=== PATIENT | male | born 1955 | race Caucasian/White ===

== ENCOUNTER 2016-09-15 07:46 | Outpatient (CLI) | payer OTHER ==
--- NOTE | 2016-09-15 08:21 | DIAGNOSTIC IMAGING REPORT ---
PROCEDURE: CT LOW-DOSE LUNG CA SCREENING CLINICAL INDICATION: LUNG CA SCREENING TECHNIQUE: Low-dose helical CT images of the lungs without contrast were obtained and reconstructed at 2.5 mm intervals. MIP reformations in coronal and sagittal planes were created. Radiation dose 1.39 mGy. COMPARISON: Oldest available comparison: Chest x-ray 04/02/2014 FINDINGS: NODULES: There are no pulmonary nodules. OTHER LUNG FINDINGS: AIRWAY: Branches normally without narrowing or endobronchial nodule. There is bronchial wall thickening. PLEURA: No effusions, thickening, or pneumothorax. AORTA AND GREAT VESSELS: Normal caliber, minor atherosclerotic calcification. PULMONARY ARTERIES: Normal. . HEART AND PERICARDIUM: Normal size without effusion, thickening. LYMPH NODES: No enlarged nodes visible. THORACIC SPINE: No suspicious lesion. Moderate degenerative changes. CHEST WALL: Normal. VISUALIZED UPPER ABDOMEN: Normal. IMPRESSION: 1. No evidence of pulmonary nodules 2. Bronchitis 3. Category 1: Negative. Continue annual screening with LDCT in [address] scans at this facility use dose modulation, iterative reconstruction, and/or weight-based dosing when appropriate to reduce radiation dose to as low as reasonably achievable.
[2016-11-13] MEDS ORDERED: LISINOPRIL10 MG PO (16:55)
[2016-11-13] MEDS ORDERED: ATENOLOL50 MG PO (16:55)
== END 2016-09-15 23:00 ==
LOC: CT SRH 07:46
DX: J40 Bronchitis, not specified as acute or chronic (principal); Z87.891 Personal history of nicotine dependence

== ENCOUNTER 2016-12-31 10:00 | Inpatient (IN) | payer OTHER ==
[~2016-12-31] VITALS: Ht 170.2 cm; Wt 72.4 kg
[~2016-12-31 10:00] MED LIST: ATENOLOL50 MG PO; LISINOPRIL10 MG PO
[2017-01-18] VITALS (9 sets, daily range): BP systolic 85–109; BP diastolic 51–77
--- NOTE | 2017-01-18 11:05 | Operative Report ---
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 endotracheal Indications: A 61-year-old male with history of diverticulitis. Recently underwent colonoscopy and polypectomy at 18 cm. Pathology shows the polyp to be atypical and highly suspicious for adenocarcinoma. FINDINGS: A thickened sigmoid consistent with chronic diverticulitis Surgical Technique: Patient brought to the operating room. Patient was placed in the dorsal supine position. Patient underwent general endotracheal anesthesia by the anesthesiology department. After proper anesthesia had taken effect patient was placed in low lithotomy. A Cannon catheter placed. Patient's abdomen was prepped and draped in a sterile fashion. An infraumbilical incision through the skin and subcutaneous tissue. A varies needle was inserted through this site. After ascertaining its appropriate position with suction irrigation, a pneumoperitoneum was obtained using CO2 insufflation to approximate 14-15 mmHg pressure. Once this pressure was reached, the varies needle was removed and replaced with a 10 mm trocar. The trocar removed leaving the sleeve behind which a laparoscopic video camera was introduced into the abdominal cavity. Under direct visualization a 12 mm trocar was placed in the right lower quadrant , another 5 mm trocar was placed in the right mid abdomen, another 5mm trocar was placed in the left midabdomen. Each introducer abdominal cavity under direct visualization. The trocar were removed leaving the sleeve behind through which laparoscopic instrumentation was introduced in the abdominal cavity. The aforementioned findings noted. The sigmoid was mobilized from lateral to medial by incising the white line of T[place]t using the ThunderBeat this being carried down into the pelvis as well. Dissection continued below the peritoneal reflection. Once the sigmoid and the rectum were mobilized, the junction of the descending colon and sigmoid were isolated by incising the mesocolon. Once the mesocolic window was performed and Endo NITA stapler was introduced into the abdominal cavity and the colon transected at that site. The mesocolon was taken down posteriorly on the colon using the ThunderBeat, continuing down posteriorly onto the rectum. A portion of the mesorectum was taken down as well as the rectal peritoneum reflection. The Endo NITA stapler was then passed back into the abdomen and placed across the rectum. The rectum was then divided using the Endo NITA. A small infraumbilical incision made and carried out to skin and subcutaneous tissue. The peritoneal cavity was entered and the pneumoperitoneum released. The rectosigmoid specimen was retrieved from the abdominal cavity and sent to pathology. The descending colon was brought up through our incision and a pursestring device was placed proximal to our staple line. Using 0 Max[place], a pursestring was created, the staple line was transected. The colotomy was then dilated to 31 mm. The endo-EEA stapler anvil was placed within the colotomy and the pursestring suture tied. The descending colon and placed anvil was allowed to return to its normal anatomical position within the abdomen The infra umbilical midline incision was closed using #1 PDS. Subcutaneous tissue was irrigated and a moist sponge was placed within the wound. The pneumoperitoneum was reestablished. The laparoscope was placed within the abdominal cavity once again. It was at this point that Dr. Canchola went below and dilated the rectal stump to 31 mm. The endo-EEA stapler was then passed and the spike extruded. The descending colon/anvil were manipulated and the anvil and spike were connected, the EEA stapler closed and fired. The endo-EEA stapler was then removed and inspected there were 2 concentric formed rings of colon and rectum identified and intact. The rectum was then insufflated with air from below while the staple line was submerged beneath a pool of normal saline. No leak identified. Hemostasis was assured within the abdominal cavity, the pneumoperitoneum was released. All trochars removed and the abdominal cavity. The infraumbilical midline incision was closed using running 4-0 Polysorb suture. All trocar sites were approximated using interrupted 4-0 Polysorb subcuticular suture as well. Sterile pressure occlusive dressings were placed over each wound. The patient was extubated. Transferred to the recovery room. There were no intraoperative or anesthetic complications. CONDITION: Stable to postoperative anesthesia recovery room COMPLICATIONS: None ESTIMATED BLOOD LOSS: Minimal FLUIDS:: 1500 cc lactated Ringer's DRAINS/PACKING: None SPECIMEN: Rectosigmoid
[2017-01-19] VITALS (7 sets, daily range): BP systolic 93–159; BP diastolic 56–103
--- NOTE | 2017-01-19 06:45 | Progress Note ---
Subjective General 61-year-old male postop day 1 status post laparoscopically assisted low anterior resection. Ambulatory. No shortness of breath or chest pain. Minimal abdominal discomfort. Passing flatus and bloody bowel movement last night. Physical Exam Vital Signs / I&Os Vital Signs Date Time Temp Pulse Resp B/P Pulse O2 O2 Flow FiO2 Ox Delivery Rate 01/19 0200 98.4 69 16 97/56 96 Room Air 0.0 I&O 01/18 0800 01/18 1600 01/19 0000 Intake Total 1000 1898 0 Output Total 1115 0 Balance 1000 783 0 General Appearance Alert, Oriented X3, Cooperative, No acute distress Lungs Clear to auscultation Cardiovascular Regular rate and rhythm Abdomen Normal bowel sounds, dressings dry and intact Extremities No cyanosis, No edema Neurological No lateralizing signs Psych/Mental Status Mood normal Assessment and Plan Problem List 1. STATUS POST LAPAROSCOPIC-ASSISTED LOW ANTERIOR RESECTION Plan Stable postop day #1. Continue present management. We'll start on clear liquid diet.
[2017-01-20] VITALS (7 sets, daily range): BP systolic 138–161; BP diastolic 71–105
--- NOTE | 2017-01-20 06:42 | Progress Note ---
Subjective General 61-year-old male postop day 2 status post laparoscopically assisted low anterior resection. Patient's blood pressure was uppermost night. Restarted on his lisinopril and atenolol. Patient states that he's passing flatus and having some bloody bowel movements. He is ambulatory. He does not complain of any shortness of breath or chest pain. Last night he had 200 cc of emesis. He complains of abdominal soreness/pain in the periumbilical region. Physical Exam Vital Signs / I&Os Vital Signs Date Time Temp Pulse Resp B/P Pulse O2 O2 Flow FiO2 Ox Delivery Rate 01/20 0232 76 01/20 0212 97.9 78 18 153/105 92 Room Air 01/19 2251 98.2 73 18 159/103 92 Room Air 01/19 1906 88 01/19 1837 88 147/100 01/19 1810 99.0 88 18 140/98 91 Room Air 01/19 1440 97.9 76 18 119/79 93 Room Air 01/19 1103 98.2 65 18 96/59 92 Room Air 0.0 01/19 0958 70 01/19 0657 98.1 70 18 93/56 96 Room Air 0.0 I&O 01/19 0800 01/19 1600 01/20 0000 Intake Total 1641 960 120 Output Total 550 550 Balance 1641 410 -430 General Appearance Oriented X3, Cooperative, No acute distress Lungs Clear to auscultation Cardiovascular Regular rate and rhythm Abdomen distended. Tympanitic. Normoactive bowel sounds. Incisions clean. Dressings dry and intact Extremities No clubbing, No edema Skin warm and dry Neurological No lateralizing signs Psych/Mental Status Mood normal LAB Results WBC this morning is 16.8. Up from 13.3 yesterday Laboratory Tests 01/19 01/20 1015 0510 Chemistry Plasma Sodium (136 - 145 mmol/L) 135 Plasma Potassium (3.5 - 5.1 mmol/L) 4.5 Plasma Chloride (98 - 107 mmol/L) 99 CO2 (Enzymatic) (21 - 32 mmol/L) 28 BUN (7 - 18 mg/dL) 18 Creatinine (0.6 - 1.3 mg/dL) 1.0 Est GFR ( Amer) (mL/min) >60 Est GFR (Non-Af Amer) (mL/min) >60 Glucose (70 - 110 mg/dL) 131 Plasma Calcium (8.5 - 10.1 mg/dL) 8.0 Hematology WBC (4.5 - 11.5 K/uL) 13.3 16.8 RBC (4.50 - 5.90 M/uL) 4.11 4.25 Hgb (13.5 - 17.5 gm/dL) 12.3 12.9 Hct (41.0 - 53.0 %) 36.3 37.3 MCV (80 - 100 fL) 88 88 MCH (26 - 34 pg) 30 30 RDW (11.6 - 14.8 %) 14.0 13.3 Neut % (Auto) (50 - 75 %) 79.4 87.3 Lymph % (Auto) (25 - 40 %) 9.1 4.4 [place] % (Auto) (3 - 14 %) 10.4 7.9 Eos % (Auto) (0 - 4 %) 0.5 0 Baso % (Auto) (0 - 2 %) 0.6 0.4 Plt Count, EDTA (150 - 400 K/uL) 278 282 PUBS MCHC (31 - 37 g/dL) 34 35 Assessment and Plan Problem List 1. STATUS POST LAPAROSCOPIC-ASSISTED LOW ANTERIOR RESECTION Plan Postop day 2 status post laparoscopic-assisted low anterior resection. He developed ileus. Developed elevated white count. Cannot rule out anastomotic leak at this point. Start by getting a upright abdominal x-ray on the patient. Will make patient n.p.o. except for meds
--- NOTE | 2017-01-20 07:21 | DIAGNOSTIC IMAGING REPORT ---
PROCEDURE: XR ABDOMEN 1 VIEW UPRIGHT INDICATION: Abdominal pain. TECHNIQUE: AP upright view. COMPARISON: None. FINDINGS: There is mild gaseous distention of small bowel loops with multiple air-fluid levels. No evidence of free air. Moderate degenerative changes of the lumbar spine. IMPRESSION: 1. Mild gaseous distention of small bowel loops with air-fluid levels. Findings are compatible with ileus or obstruction (versus gastroenteritis).
[2017-01-21 02:02] VITALS: BP 121/67
[2017-01-21 06:45] VITALS: BP 149/82
--- NOTE | 2017-01-21 06:49 | Progress Note ---
Subjective General 61-year-old male who is postop day #3 laparoscopic-assisted low anterior resection. More comfortable today than yesterday. He continues to pass flatus and having brown bowel movements. Ambulatory. Still complains of some pain at the periumbilical region incision site. Physical Exam Vital Signs / I&Os Vital Signs Date Time Temp Pulse Resp B/P Pulse O2 O2 Flow FiO2 Ox Delivery Rate 01/21 0202 98.2 58 15 121/67 92 Room Air 01/20 2226 97.9 63 16 144/71 93 Room Air 01/20 2027 67 01/20 1810 98.4 67 18 138/91 95 Room Air 01/20 1420 98.2 67 18 140/85 93 Room Air 01/20 1241 144/88 01/20 1112 98.1 79 20 161/95 96 Room Air 0.0 01/20 1010 92 01/20 0824 70 01/20 0657 97.5 69 18 139/92 92 Room Air 0.0 I&O 01/20 0800 01/20 1600 01/21 0000 Intake Total 1268 1521 Output Total 500 850 300 Balance 768 -850 1221 General Appearance Alert, Oriented X3, Cooperative, No acute distress Lungs Clear to auscultation Cardiovascular Regular rate and rhythm Abdomen Normal bowel sounds, less abdominal distention. Ecchymosis around the infraumbilical surgical site. No evidence of cellulitis. Next tympany to percussion. Extremities No clubbing, No edema Skin warm and dry Neurological No lateralizing signs Psych/Mental Status Mood normal LAB Results WBC down this morning 10.6. Laboratory Tests 01/21 0520 Hematology WBC (4.5 - 11.5 K/uL) 10.6 RBC (4.50 - 5.90 M/uL) 3.72 Hgb (13.5 - 17.5 gm/dL) 11.2 Hct (41.0 - 53.0 %) 33.0 MCV (80 - 100 fL) 89 MCH (26 - 34 pg) 30 RDW (11.6 - 14.8 %) 14.1 Neut % (Auto) (50 - 75 %) 74.5 Lymph % (Auto) (25 - 40 %) 7.9 [place] % (Auto) (3 - 14 %) 13.2 Eos % (Auto) (0 - 4 %) 4.2 Baso % (Auto) (0 - 2 %) 0.2 Plt Count, EDTA (150 - 400 K/uL) 264 PUBS MCHC (31 - 37 g/dL) 34 Imaging Upright abdominal x-ray yesterday consistent with ileus. No evidence of free air. Assessment and Plan Problem List 1. STATUS POST LAPAROSCOPIC-ASSISTED LOW ANTERIOR RESECTION Plan Postop day #3 laparoscopic low anterior resection. Stable. We'll start clear liquid diet again. Patient may shower today. We'll start by mouth pain meds.
[2017-01-21 10:56] VITALS: BP 148/74
[2017-01-21 14:45] VITALS: BP 149/87
[2017-01-21] MEDS ORDERED: HYCET1 ML PO (14:47)
[2017-01-21] MEDS ORDERED: COLACE100 MG PO (14:49)
--- NOTE | 2017-01-21 14:50 | Provider's Discharge Care Plan ---
Problem, Goal, Plan Problem List 1. STATUS POST LAPAROSCOPIC-ASSISTED LOW ANTERIOR RESECTION Goals: Improve disease control, Therapeutic intervention Instructions: Follow up as directed, Take meds as directed
--- NOTE | 2017-01-21 14:51 | Discharge Summary ---
Discharge Summary Report Admit Date 01/18/17 Discharge Date 01/21/17
--- NOTE | 2017-01-21 14:51 | Discharge Summary ---
Discharge Summary Report Admit Date 01/18/17 Discharge Date 01/21/17
--- NOTE | 2017-01-21 15:08 | Discharge Summary ---
Discharge Summary Report Admit Date 01/18/17 Discharge Date 01/21/17 Admission Diagnosis Dysplastic polyps, suspicious for adenocarcinoma of the rectosigmoid. Discharge Diagnosis Dysplastic polyps, suspicious for adenocarcinoma of the rectosigmoid Brief History 61-year-old male who recently underwent a screening colonoscopy. Several small polyps were identified in the rectum near the rectosigmoid. Biopsy of these polyps revealed dysplastic polyps highly suspicious for adenocarcinoma. The patient was admitted for laparoscopically assisted low anterior resection. Hospital Course Patient was admitted to [facility]. Taken to the operating room where he underwent uneventful laparoscopically assisted low anterior resection. Immediate postoperative course was unremarkable. On postop day 2 he is quite calcified to 16,000. Upright abdominal x-ray revealed no evidence of free air. The patient's ileus began to resolve later that evening. By postoperative day # 3 he was feeling much better. He was passing flatus and having brown stools. He was having less abdominal discomfort. Afebrile and stable vital signs. His white count was 10,000. General Appearance Alert, Oriented X3, Cooperative Lungs Clear to auscultation Cardiovascular Regular Rate Abdomen Normal bowel sounds, all trocar and incision sites clean with no evidence of cellulitis. He was noted to have some ecchymosis about the infraumbilical incisional scar. His abdomen was less distended and less tympanitic than the day before. Skin warm and dry Neurological no lateralizing findings Psych/Mental Status Mood NL Lab/Imaging Laboratory Tests 01/21 0520 Hematology WBC (4.5 - 11.5 K/uL) 10.6 RBC (4.50 - 5.90 M/uL) 3.72 Hgb (13.5 - 17.5 gm/dL) 11.2 Hct (41.0 - 53.0 %) 33.0 MCV (80 - 100 fL) 89 MCH (26 - 34 pg) 30 RDW (11.6 - 14.8 %) 14.1 Neut % (Auto) (50 - 75 %) 74.5 Lymph % (Auto) (25 - 40 %) 7.9 [place] % (Auto) (3 - 14 %) 13.2 Eos % (Auto) (0 - 4 %) 4.2 Baso % (Auto) (0 - 2 %) 0.2 Plt Count, EDTA (150 - 400 K/uL) 264 PUBS MCHC (31 - 37 g/dL) 34 Discharge Instructions/Meds Patient was discharged home to follow with [facility] in one week. He was discharged home on wound care instructions. Patient was instructed that he could shower. Patient was discharged home on a clear liquid diet. Patient was instructed should he be able to tolerate a clear diet he could advance to a full liquid diet. Patient was to resume his home medications, which included atenolol 50 mg daily and lisinopril 20 mg daily. He was also discharged on Hycet elixir 1 tablespoon every 6 hours when necessary pain. Patient was also discharged on Colace 100 mg with meals and at bedtime.
== END 2017-01-21 17:00 | disposition home or self-care (01) | DRG 330 ==
LOC: U SRH 10:00 → SCU SRH 01-18 06:19 → ACUTE2 SRH 01-18 06:19 → U SRH 01-18 07:30 → ACUTE2 SRH 01-18 11:28
PROVIDERS: ADMIT Specialist
PROC: 0DBP0ZZ Excision of Rectum, Open Approach (ICD-10-PCS; principal; 2017-01-18 07:30)
PROC: 0DTN0ZZ Resection of Sigmoid Colon, Open Approach (ICD-10-PCS; principal; 2017-01-18 07:30)
DX: D12.7 Benign neoplasm of rectosigmoid junction (principal); K57.32 Diverticulitis of large intestine without perforation or abscess without bleeding; K91.89 Other postprocedural complications and disorders of digestive system; K56.7 Ileus, unspecified; I10 Essential (primary) hypertension
CPT/HCPCS: 50002; 60001; 70002; 80102; 80212; 80248; 82319; 82669; 82723; 82794; 82807; 82897; 83587; 83982; 84038; 84041; 84343; 84344; 84531; 90047; 90074; 90098; 95059

== ENCOUNTER 2017-01-15 11:35 | Outpatient (CLI) | payer OTHER | END 2017-01-15 23:00 | LOC: LAB SRH 11:35 | DX: C19 Malignant neoplasm of rectosigmoid junction (principal) | CPT/HCPCS: 90001; 90074; 90100; 90155; 91004; 93005; 95059 ==